=== PATIENT | female | born 1950 | race Caucasian/White ===

== ENCOUNTER 2017-12-31 09:07 | Emergency (ER) | payer OTHER ==
[~2017-12-31] VITALS: Ht 152.4 cm; Wt 103.4 kg
[~2017-12-31 09:07] MED LIST: CALAN SR 120MG120 MG; CALAN80 MG PO; CYMBALTA30 MG PO; GLUCOPHAGE XR500 MG; HYZAAR 100-121 UDTAB; HYZAAR 100-251 UDTAB PO; KETO10TA2 PO; LYRICA50 MG; METFORMIN HCL500 MG; NORFLEX 30MG30 MG/ML IM; NORTUSS-EX LIQ118 ML PO; ORPH100T PO; PROVENTIL HFA6.7 GM IH; PROVENTIL S1 ML/5 MG; PROVENTIL3 ML/2.5 M IH; QUETIAPINE FUMA25 MG PO; TESSALON PERLE100 MG PO; TORADOL30 MG IM; TORADOL60 MG IM; TUSSI PRES-B L120 M1 PO; ZYRTEC10 MG PO
== END 2017-12-31 18:09 | disposition home or self-care (01) ==
LOC: ER 09:07
DX: J45.998 Other asthma (principal)

== ENCOUNTER 2020-03-18 16:15 | Emergency (ER) | payer OTHER ==
[~2020-03-18] VITALS: Ht 154.9 cm; Wt 89.8 kg
== END 2020-03-18 20:24 | disposition home or self-care (01) ==
LOC: ER 16:15
DX: R06.02 Shortness of breath (principal); J45.909 Unspecified asthma, uncomplicated; M79.7 Fibromyalgia

== ENCOUNTER 2021-02-18 11:07 | Emergency (ER) | payer OTHER ==
[~2021-02-18] VITALS: Ht 152.4 cm; Wt 68.0 kg
[2021-02-18] MEDS ORDERED: MOTION SICKNESS25 M1 PO (17:11)
== END 2021-02-18 17:39 | disposition home or self-care (01) ==
LOC: ER 11:07
DX: H81.12 Benign paroxysmal vertigo, left ear (principal)

== ENCOUNTER 2021-10-15 09:53 | Emergency (ER) | payer OTHER ==
[~2021-10-15] VITALS: Ht 162.6 cm; Wt 65.8 kg
[~2021-10-15 09:53] MED LIST changes: +MOTION SICKNESS25 M1 PO
[2021-10-15] MEDS ORDERED: JENTADUETO XR1 EAC1 PO (10:07)
[2021-10-15] MEDS ORDERED: FLONASE16 GM NS (10:08)
[2021-10-15] MEDS ORDERED: LORATADINE10 MG PO (10:08)
== END 2021-10-15 12:41 | disposition home or self-care (01) ==
LOC: ER 09:53
DX: D50.9 Iron deficiency anemia, unspecified (principal); E11.65 Type 2 diabetes mellitus with hyperglycemia; Z79.84 Long term (current) use of oral hypoglycemic drugs; Z53.1 Procedure and treatment not carried out because of patient's decision for reasons of belief and group pressure